=== PATIENT | male | born 1970 | race Caucasian/White ===

== ENCOUNTER 2022-03-24 16:30 | Emergency (ER) | payer OTHER, SELFPAY ==
--- NOTE | ~2022-03-24 | CT_ITS ---
EXAMINATION: CT abdomen pelvis wo con DATE: 03/24/2022 17:22 INDICATION: lower abdominal/pelvic pain radiates to rectum TECHNIQUE: Computed tomography (CT) of the abdomen and pelvis was performed without intravenous contr ast. Automated exposure control and iterative reconstruction technique were employed. The dose-length product was 1511.93 mGy-cm. COMPARISON: None FINDINGS: Lower thorax: Unremarkable Liver: Steatosis. Biliary/Gallbladder: Gallbladder is normal. No bile duct dilation. Pancreas: No mass or duct dilation. Spleen: Normal. Adrenals:No mass. Kidneys: No mass, stone, or hydronephrosis. GI tract: No small or large bowel dilation. Normal appendix. Diverticulosis. Short segment focal dive rticular inflammation in the mid sigmoid. Mesentery/Peritoneum: No ascites, mass, or free air. Retroperitoneum: No mass. Pelvis: Pelvic organs are within normal limits. Soft Tissues: Small umbilical and bilateral fat-containing hernias. Otherwise the soft tissues are un remarkable. Bones: No acute osseous finding. IMPRESSION: Uncomplicated sigmoid diverticulitis. Reviewed, dictated and finalized at location [facility].
[2022-03-24 16:33] VITALS: BP 162/108; PULSE 78; RESP 16; TEMP 36.4; O2SAT 100
[2022-03-24 17:02] LABS: Basophils Absolute Auto 0.1 K/mm3 (0.0-0.1); Basophils Percent Auto 1.3 % (0.2-1.2); Eosinophils Absolute Auto 0.2 K/mm3 (0-0.3); Hematocrit 47.9 % (42.0-52.0); Immature Granulocyte Absolute 0.02 K/mm3 (0.00-0.031); Immature Granulocyte Percent A 0.3 % (0-0.5); Lymphocytes Absolute Auto 2.66 K/mm3 (0.9-3.2); Lymphocytes Percent Auto 35.4 % (18.3-44.2); Mean Corpuscular HGB Conc 35.5 g/dl (32-36); Mean Corpuscular Hemoglobin 31.1 pg (26-34); Mean Corpuscular Volume 87.7 fl (80-100); Mean Platelet Volume 10.2 fl (7.4-10.4); Monocytes Absolute Auto 0.4 K/mm3 (0.1-0.6); Monocytes Percent Auto 5.3 % (2.6-8.5); Neutrophils Absolute Auto 4.2 K/mm3 (1.3-6.7); Neutrophils Percent Auto 55.7 % (45.5-73.1); Platelet Count Result 170 k/mm3 (150-375); Red Blood Count 5.46 M/mm3 (4.6-6.20); Red Cell Distribution Width 12.1 % (11.5-14.5); White Blood Count 7.5 K/mm3 (4.5-10.0)
[2022-03-24 17:04] VITALS: PULSE 68; RESP 13
[2022-03-24 17:11] LABS: Lactic Acid Reflex 1.5 mmol/L (0.7-2.0)
[2022-03-24 17:13] LABS: Alanine Aminotransferase 56 U/L (6-50); Albumin Level 4.8 g/dL (3.5-5.1); Alkaline Phosphatase 81 U/L (38-126); Anion Gap 8 mmol/L (8-16); Aspartate Amino Transferase 43 U/L (17-59); Bilirubin,Total 0.5 mg/dL (0.2-1.3); Blood Urea Nitrogen 12 mg/dL (9-20); Calcium 8.9 mg/dL (8.4-10.2); Carbon Dioxide 24 mmol/L (22-30); Chloride 106 mmol/L (98-107); Estimated CRCL calculation 107 ml/min; Estimated Glomerular Filt Rate > 60; Glucose 104 mg/dL (65-110); Lipase 96 U/L (23-300); Potassium 3.9 mmol/L (3.4-5.0); Sodium 138 mmol/L (137-145)
[2022-03-24 17:15] VITALS: PULSE 67; RESP 15
--- NOTE | 2022-03-24 17:29 | ED.ABDPAIN ---
HPI - Abdominal Pain General Chief Complaint: Abdominal Pain Stated Complaint: ABD Pain x4 Days Time Seen by Provider: 03/24/22 16:47 History of Present Illness HPI narrative: 51-year-old male presents today with complaints of 4 days of lower abdominal/pelvic pain radiating to his rectum. Patient does endorse intermittent nausea but denies diarrhea, constipation, dysuria, urinary frequency. Patient does endorse his stools seem darker than normal almost black. Patient denies any bright red blood. Patient states he does have a history of hemorrhoids. Patient with colonoscopy approximately 1 year ago states that he had 4 polyps that were benign. Related Data Allergies Allergy/AdvReac Type Severity Reaction Status Date / Time No Known Allergies Allergy Verified 03/24/22 17:24 Review of Systems Review of Systems: CONSTITUTIONAL: Denies fever, chills, or sweats. EYES: Denies visual changes, redness, or discharge. ENT: Denies rhinorrhea, congestion, sore throat, or otalgia. CARDIOVASCULAR: Denies chest pain, palpitations, or edema. RESPIRATORY: Denies cough or dyspnea. GASTROINTESTINAL: Abdominal/pelvic pain with nausea. Abdominal distention. Denies vomiting, or diarrhea. GENITOURINARY: Denies dysuria or hematuria. SKIN: Denies rash or itching. MUSCULOSKELETAL: Denies back pain, joint pain, or myalgia. NEUROLOGIC: Denies headache, numbness, dizziness, or weakness. PSYCHIATRIC: Denies anxiety or depression. PMFSH Past Medical History Medical History Back pain Surgical History Surgical History Previous back surgery Social History Social History (Updated 03/24/22 @ 17:33 by Karon Osei APRN) Smoking status: Former smoker Substance use: current Substance use type: marijuana Other substance usage details: Daily Exam Narrative: GENERAL: Well-appearing, well-nourished, and in no acute distress. HEAD: Normocephalic, atraumatic. EYES: PERRLA and EOMI. NECK: Supple. No adenopathy or masses. No carotid bruits or JVD CHEST: Clear to auscultation. No respiratory distress. No wheezes rales or rhonchi HEART: Regular rate and rhythm. No murmur heard. Normal peripheral pulses. ABDOMEN: Soft, nontender, distended, normal active bowel sounds. Rectal exam performed with outsole rounder. No visible hemorrhoids, rectal vault without stool. Hemoccult negative. EXTREMITIES: Normal range of motion. No edema. SKIN: Warm, dry, no rash. NEURO: No focal deficits. Alert and oriented x3. PSYCH: Normal mood and affect. Course Course Emergency Course: Results reviewed with patient. CT scan shows sigmoid diverticulitis uncomplicated. Patient afebrile without signs of sepsis. White count normal. Plan is to discharge home with antibiotics and follow-up with primary on Tuesday. Primary MD paged without return call at this time. Patient is anxious to be discharged. Discharged home aware to return with any new or worsening symptoms Reevaluation(s) Reevaluation #1: Dr. Andrade aware of labs and findings. Aware of discharge home on ABX, clear liquids, with plan follow up with him tuesday or to return to the Er if any new or concerning findings. Date: 03/24/22 Time: 18:56 Vital Signs Vital signs: Vital Signs Temperature 36.4 C 03/24/22 16:33 Pulse Rate 78 03/24/22 16:33 Respiratory Rate 16 03/24/22 16:33 Blood Pressure 162/108 H 03/24/22 16:33 Pulse Oximetry 100 03/24/22 16:33 Oxygen Delivery Room Air 03/24/22 16:33 Temperature 36.4 C 03/24/22 16:33 Pulse Rate 71 03/24/22 17:45 Respiratory Rate 9 L 03/24/22 17:45 Blood Pressure 162/108 H 03/24/22 16:33 Pulse Oximetry 95 03/24/22 17:45 Oxygen Delivery Room Air 03/24/22 16:33 MDM - Abdominal Pain MDM Narrative Medical decision making narrative: 51-year-old male HPI as noted. Patient without any surgical history to the abdomen. C
[2022-03-24 17:30] VITALS: PULSE 63; RESP 11; O2SAT 96
[2022-03-24] MEDS: SODIUM CHLORIDE 0.9% IV 1,000 ML 999 ML IV CONT (17:34)
[2022-03-24] MEDS: HYDROmorphone HCL INJ (*CRX) 1 MG/ML SYR 0.5 MG IV PUSH (17:35)
[2022-03-24 17:45] VITALS: PULSE 71; RESP 9; O2SAT 95
[2022-03-24 18:25] VITALS: BP 168/92; PULSE 58; RESP 16; O2SAT 97
[2022-03-24 18:36] LABS: Appearance Urine Clear (Clear); Bilirubin Urine Negative (Negative); Color Urine Yellow (Yellow); Glucose Urine UA Negative (Negative); Ketones Urine Negative (Negative); Leukocyte Esterase Ur Negative LEU/UL (Negative); Nitrate Urine Negative (Negative); Protein Urine Negative (Negative); Specific Grav Ur >= 1.030 (1.001-1.035); Urobilinogen Urine 0.2 mg/dL (<2.0); pH Urine 5.5 (5.0-9.0)
[2022-03-24 18:37] LABS: Add Urine Microscopic? YES; Blood Urine Trace-Intact (Negative)
[2022-03-24 18:39] LABS: Mucus Urine Rare /lpf; RBC Urine 0-2 /hpf (0-2); WBC Urine 0-3 /hpf
[2022-03-24] MEDS: AMOXICILLIN/CLAVULANATE K 875-125 MG TAB 1 TABLET PO (18:51)
== END 2022-03-24 18:58 | disposition home or self-care (01) ==
PROVIDERS: Emergency Medicine; Emergency Provider Nurse Practitioner Family
DX: K57.32 Diverticulitis of large intestine without perforation or abscess without bleeding (principal)
CPT/HCPCS: 36415; 74176; 80053; 81001; 83605; 83690; 85025; 96361; 96374; 99284; A9270; J1170; J7030

== ENCOUNTER 2022-04-10 11:23 | Outpatient (CLI) | payer OTHER, SELFPAY ==
--- NOTE | ~2022-04-10 | XR_ITS ---
EXAMINATION: XR chest 2V Exam Date/Time: 04/10/2022 12:31 CDT HISTORY: CHEST PAIN, HTN Comparison: CT abdomen pelvis 03/24/2022. RESULT: Lines, tubes, and devices: None. Lungs and pleura: Clear. Cardiomediastinal silhouette: Unremarkable cardiomediastinal silhouette. Other: No acute osseous or upper abdominal finding. IMPRESSION: No acute cardiopulmonary process. Reviewed, dictated and finalized at location [facility].
[2022-04-10 13:07] LABS: Creatinine Urine 168.1 mg/dL
[2022-04-10 13:08] LABS: Cholesterol 229 mg/dL (0-200); HDL Direct 32 mg/dL; Triglycerides 221 mg/dL (<150)
[2022-04-10 13:12] LABS: MALB Creatinine Ratio 8.7 mg/g (0-30); Microalbumin Urine Random 14.7 mg/L (0-16.7)
[2022-04-10 13:19] LABS: LDL Cholesterol Direct 145 mg/dL
[2022-04-10 13:58] LABS: Prostate Specific Antigen 0.8 ng/mL (< OR = 4.0)
== END 2022-04-10 11:24 | disposition home or self-care (01) ==
PROVIDERS: Visit Provider Emergency Medicine
DX: I10 Essential (primary) hypertension (principal); R07.9 Chest pain, unspecified
CPT/HCPCS: 36415; 71046; 80061; 82043; 82306; 83036; 84153; 84439; 84443

== ENCOUNTER 2022-07-27 13:02 | Outpatient (CLI) | payer OTHER, SELFPAY ==
[2022-07-27 13:36] LABS: Creatine Kinase 264 U/L (55-170)
[2022-07-27 13:54] LABS: Rheumatoid Factor < 8.6 IU/ML (<12)
[2022-07-27 14:07] LABS: Erythrocyte Sedimentation Rate 1 mm/hr (0-20)
== END 2022-07-27 13:03 | disposition home or self-care (01) ==
LOC: ANHLAB 13:05
PROVIDERS: Visit Provider Emergency Medicine
DX: M77.8 Other enthesopathies, not elsewhere classified (principal)
CPT/HCPCS: 36415; 82550; 85652; 86038; 86430

== ENCOUNTER 2022-09-17 00:45 | Day surgery (SDC) | payer OTHER, SELFPAY ==
[2022-09-10 10:55] VITALS: BMI 36.3
[2022-09-17 08:30] VITALS: BP 132/81; PULSE 80; RESP 18; TEMP 36.2; O2SAT 99; BMI 36.3
[2022-09-17] MEDS: LACTATED RINGERS 1,000 ML 150 ML IV CONT (08:48)
--- NOTE | 2022-09-17 09:10 | PM.HPGS ---
History of Present Illness History of Present Illness Consent: Risks, benefits, and alternatives have been discussed and questions answered. Patient agrees to proceed with procedure. Chief complaint: GERD, diverticulitis Narrative: Pete Asher III is a 52 year old male here for egd and colonoscopy, here after 2nd episode of diverticulitis earlier this year treated as outpatient (CT scan reviewed), he had colonoscopy in 2019 with several polyps removed. GERD on ppi as needed, never had egd. Review of Systems Constitutional: Constitutional: Denies headache(s) and Denies weakness Eyes: Eyes: Denies blurry vision ENT: Reports Normal hearing present, Denies headache(s) and Denies neck pain Cardiovascular: Cardiovascular: Denies chest pain and Denies dyspnea Respiratory: Respiratory: Denies dyspnea Gastrointestinal: Gastrointestinal: Reports no additional gastrointestinal complaints Genitourinary: Genitourinary: Denies dysuria Musculoskeletal: Musculoskeletal: Denies neck pain Integumentary/Breasts: Skin/Breast: Denies dry skin Neurologic: Reports Normal hearing present, Denies headache(s) and Denies weakness Psychiatric: Psychiatric: Denies anxiety Endocrine: Endocrine: Denies change in body appearance Hematologic/Lymphatic: Hematologic/Lymphatic: Denies easy bleeding Allergic/Immunologic: Allergic/Immunologic: Denies urticaria PMFSH Past Medical History Medical History (Updated 07/15/22 @ 14:33 by Balaji Martel MD) Adenomatous colon polyp Back pain Blood in stool Choking GERD (gastroesophageal reflux disease) HTN (hypertension), benign Surgical History Surgical History Previous back surgery Family History Family History Father Diabetes mellitus Hypertension Heart disease Kidney malignancy Social History Social History Smoking packs per day: 0.5 Smoking cigarettes per day: 10.0 Years smoked: 26 Smoking pack-years: 13.00 Smoking status: Current every day smoker Tobacco type: cigarettes Alcohol intake: never Substance use: current Substance use type: marijuana Other substance usage details: Daily Last use: 3x weekly edibles Living arrangements: with family Spiritual care concerns: No Meds Home Medications and Allergies Home Medications Medication Instructions Recorded Confirmed Type lisinopril 5 mg tablet 5 mg PO DAILY 07/15/22 09/17/22 History oxycodone-acetaminophen 10 mg-325 1 tablet PO Q8H PRN Pain 07/15/22 09/17/22 History mg tablet (Percocet) simvastatin 10 mg tablet 10 mg PO DAILY 07/15/22 09/17/22 History tizanidine 4 mg capsule 4 mg PO TID PRN Muscle Spasm 07/15/22 09/17/22 History fremanezumab-vfrm 225 mg/1.5 mL 225 mg subcut MONTHLY 09/10/22 09/17/22 History subcutaneous syringe (Ajovy Syringe) ibuprofen 600 mg tablet 600 mg PO Q6H PRN Pain 09/10/22 09/17/22 History Allergies Allergy/AdvReac Type Severity Reaction Status Date / Time No Known Allergies Allergy Verified 09/17/22 08:38 Vital Signs Vital Signs - 24 hr 09/17/22 08:30 Temperature 97.2 F L Pulse Rate 80 Respiratory Rate 18 Blood Pressure 132/81 Pulse Oximetry 99 Oxygen Delivery Room Air Exam Const: General: comfortable and no acute distress HENMT: Face/Nose/Sinus: Normal nares present Eyes: General: appearance normal, both eyes and all related structures Neck: Neck: no JVD Resp: Auscultation: clear to auscultation bilaterally Cardio: Rate: regular rate Rhythm: regular rhythm GI: Inspection: non-distended GI Palp: Yes Soft to palpation Skin: General skin exam: normal color Neuro: General: gait normal Speech: normal speech Extrem: General: normal to inspection Psych: Mental Status: mental status grossly normal Assessment and Plan
--- NOTE | 2022-09-17 09:11 | WPDANESEPPF ---
Anes - Initial Pre Proc Eval Procedure: Operation Date: 09/17/22 09:30 Proposed Procedures p Esophagogastroduodenoscopy & Colonoscopy - Balaji Martel MD Date/Time: 09/17/22 09:11 Surgeon: Balaji Martel MD Pre Op Diagnosis: GERD, diverticulitis Patient Data Age: 52 Gender: M Height: 1.85 m Weight: 125.2 kg Last Vital Signs Temp 97.2 F L 09/17/22 08:30 Pulse 80 09/17/22 08:30 Resp 18 09/17/22 08:30 BP 132/81 09/17/22 08:30 Pulse Ox 99 09/17/22 08:30 O2 Del Method Room Air 09/17/22 08:30 Allergies Allergy/AdvReac Type Severity Reaction Status Date / Time No Known Allergies Allergy Verified 09/17/22 08:38 Home Medications Medication Instructions Recorded Confirmed Type lisinopril 5 mg tablet 5 mg PO DAILY 07/15/22 09/17/22 History oxycodone-acetaminophen 10 mg-325 1 tablet PO Q8H PRN Pain 07/15/22 09/17/22 History mg tablet (Percocet) simvastatin 10 mg tablet 10 mg PO DAILY 07/15/22 09/17/22 History tizanidine 4 mg capsule 4 mg PO TID PRN Muscle Spasm 07/15/22 09/17/22 History fremanezumab-vfrm 225 mg/1.5 mL 225 mg subcut MONTHLY 09/10/22 09/17/22 History subcutaneous syringe (Ajovy Syringe) ibuprofen 600 mg tablet 600 mg PO Q6H PRN Pain 09/10/22 09/17/22 History Patient hx anesthesia problems: none Family hx anesthesia problems: none Results Review: All pre-operative results and documents have been reviewed as part of the pre-operative evaluation. [facility] Past Medical History Medical History (Updated 07/15/22 @ 14:33 by Balaji Martel MD) Adenomatous colon polyp Back pain Blood in stool Choking GERD (gastroesophageal reflux disease) HTN (hypertension), benign Surgical History Surgical History Previous back surgery Family History Family History Father Diabetes mellitus Hypertension Heart disease Kidney malignancy Social History Social History Smoking packs per day: 0.5 Smoking cigarettes per day: 10.0 Years smoked: 26 Smoking pack-years: 13.00 Smoking status: Current every day smoker Tobacco type: cigarettes Alcohol intake: never Substance use: current Substance use type: marijuana Other substance usage details: Daily Last use: 3x weekly edibles Living arrangements: with family Spiritual care concerns: No Anes - Eval Final PreProcedure Day of Procedure 09/17/22 09:11 Patient weight: obese Heart: regular rate and rhythm Lungs: clear to auscultation Airway: Mallampati scale class II Neurological: alert and oriented Last oral intake: >/= 8 hours ASA classification: III Emergent: no Anesthetic plan: proceed Anesthesia type and monitoring: general GIVS and standard monitoring Results Review: All pre-operative results and documents have been reviewed as part of the pre-operative evaluation. Informed Consent: The patient's anesthetic plan and its attendant risks and benefits were discussed with the patient/family/POA. Questions were solicited and answers provided to the satisfaction of the patient/family/POA.
[2022-09-17] MEDS: BENZOCAINE (*SP) 60 ML SPRAY CAN (HURRICAINE) 1 SPRAY MUCOUS MEM (09:18)
--- NOTE | 2022-09-17 09:28 | SUR.OPER ---
EGD end 922 COLONOSCOPY START 926
[2022-09-17 09:39] VITALS: BP 114/68; PULSE 73; RESP 19; O2SAT 99
[2022-09-17 09:49] VITALS: BP 108/74; PULSE 66; RESP 18; O2SAT 99
[2022-09-17 09:59] VITALS: BP 122/82; PULSE 74; RESP 18; O2SAT 99
== END 2022-09-17 10:09 | disposition home or self-care (01) ==
PROVIDERS: PCP Emergency Medicine; Visit Provider Internal Medicine Gastroenterology
PROC: 0DJ08ZZ Inspection of Upper Intestinal Tract, Via Natural or Artificial Opening Endoscopic (ICD-10-PCS; CPT 43235; principal; 2022-09-17 09:30)
DX: K21.9 Gastro-esophageal reflux disease without esophagitis (principal); K29.70 Gastritis, unspecified, without bleeding; K57.30 Diverticulosis of large intestine without perforation or abscess without bleeding; K64.8 Other hemorrhoids; K57.32 Diverticulitis of large intestine without perforation or abscess without bleeding; Z86.010 Personal history of colon polyps; I10 Essential (primary) hypertension; F17.210 Nicotine dependence, cigarettes, uncomplicated
CPT/HCPCS: 43239; 45378; 88305; J2704; J7120

== ENCOUNTER 2022-09-28 12:48 | Outpatient (CLI) | payer OTHER, SELFPAY ==
--- NOTE | ~2022-09-28 | MR_ITS ---
MRI of the thoracic spine Clinical History: Back pain Technique: Axial T2-weighted images, and sagittal T1-weighted, T2-weighted, and STIR images were acqu ired. Findings: There is no fracture or subluxation of the thoracic spine. Vertebral bodies maintain normal height and alignment. No suspicious or abnormal bone marrow signal identified. No disc bulge or herniation identified at any thoracic level. There is prominent posterior epidural f at extending from the T5 level through the T10 level, resulting in relative effacement of the thecal sac, but no pedro cord compression. Paravertebral soft tissues otherwise are unremarkable. Impression: Prominent posterior epidural fat from T5 through T10, resulting in relative effacement/compression of the thecal sac at these levels, without pedro cord compression. Reviewed, dictated and finalized at [facility]. ORK DEVELOPMENT COORDINATOR Impression: Prominent posterior epidural fat from T5 through T10, resulting in relative eff acement/compression of the thecal sac at these levels, without pedro cord compr ession.
--- NOTE | ~2022-09-28 | MR_ITS ---
MRI of the cervical spine Clinical History: Back pain Technique: Axial T2-weighted and gradient images, and sagittal T1-weighted, T2-weighted, and STIR katina ges were acquired. Findings: There is no fracture or subluxation of the cervical spine. Vertebral bodies maintain normal height and alignment. No focal bone marrow signal abnormality identified. At C2-C3, there is no disc bulge or herniation. No spinal canal stenosis, cord compression, or neural foraminal narrowing. At C3-C4, there is minimal disc osteophyte complex. There is mild central canal stenosis without skyler k cord compression. There is probable minimal bilateral neural foraminal narrowing. At C4-C5, disc osteophyte complex results in mild canal stenosis and minimal flattening of the ventra l cord. Bilateral neural foramina are preserved. At C5-C6, disc osteophyte complex results in mild canal stenosis and mild ventral cord compression. N eural foramina are well preserved. At C6-C7, disc osteophyte complex is present, resulting in mild canal stenosis and ventral cord compr ession. Bilateral neural foramina are mildly narrowed. No abnormal signal seen in the spinal cord. Paravertebral soft tissues are unremarkable. Impression: Disc osteophyte complexes at C4-C5, C5-C6, and C6-C7, which result in mild canal stenosis and mild ve ntral cord flattening/compression. Probable mild bilateral neural foraminal narrowing at C3-C4 and C6-C7. Reviewed, dictated and finalized at [facility]. ROLL CATCHER Impression: Disc osteophyte complexes at C4-C5, C5-C6, and C6-C7, which result in mild jose david l stenosis and mild ventral cord flattening/compression. Probable mild bilateral neural foraminal narrowing at C3-C4 and C6-C7.
--- NOTE | ~2022-09-28 | MR_ITS ---
MRI of the lumbar spine Clinical History: Back pain Technique: Axial T2-weighted images, and sagittal T1-weighted, T2-weighted, and T2 fat-sat images wer e acquired. Findings: There is no fracture or subluxation of the lumbar spine. Vertebral bodies maintain normal h eight and alignment. No suspicious bone marrow signal abnormality identified. At L1-L2, L2-L3, L3-L4, and L4-L5, intervertebral discs maintain normal signal and position. No disc bulge or herniation seen at disc levels. There is mild facet joint arthropathy at L3-L4 and L4-L5. No pedro spinal canal stenosis at these levels. There is mild left neural foraminal narrowing at L4-L5. Remaining neural foramina at these levels are unremarkable. At L5-S1, there is disc desiccation with mild central disc protrusion. No spinal canal stenosis. Prob able mild bilateral neural foraminal narrowing. There is mild facet arthropathy. Paravertebral soft tissues are unremarkable. Impression: Mild degenerative spondylitic changes at L4-L5 and L5-S1, as detailed above. Probable mild bilateral neural foraminal narrowing at L5-S1 and mild left neural foraminal narrowing at L4-L5. Reviewed, dictated and finalized at [facility]. IAL POLICE Impression: Mild degenerative spondylitic changes at L4-L5 and L5-S1, as detailed above. Pr obable mild bilateral neural foraminal narrowing at L5-S1 and mild left neural foraminal narrowing at L4-L5.
== END 2022-09-28 12:49 | disposition home or self-care (01) ==
PROVIDERS: PCP Emergency Medicine; Visit Provider Emergency Medicine
DX: M54.2 Cervicalgia (principal); M47.896 Other spondylosis, lumbar region; M47.897 Other spondylosis, lumbosacral region
CPT/HCPCS: 72141; 72146; 72148

== ENCOUNTER 2022-10-05 17:24 | Emergency (ER) | payer OTHER, SELFPAY ==
[2022-10-05 17:42] VITALS: BP 131/77; PULSE 71; RESP 16; TEMP 36.4; O2SAT 97
--- NOTE | 2022-10-05 18:00 | ED.URI ---
HPI - URI/Sore Throat General Chief Complaint: Upper Respiratory Infection Stated Complaint: Cough,Shortness Of Breath,Congestion,Fatigue Time Seen by Provider: 10/05/22 18:00 Source: patient, RN notes reviewed and old records reviewed Mode of arrival: ambulatory Limitations: no limitations History of Present Illness HPI Narrative: 52-year-old male presents to the [facility] with fatigue, cough, chest congestion since last night. Has not taken anything for his symptoms. Related Data Home Medications Medication Instructions Recorded Confirmed lisinopril 5 mg tablet 5 mg PO DAILY 07/15/22 10/05/22 oxycodone-acetaminophen 10 mg-325 1 tablet PO Q8H PRN Pain 07/15/22 10/05/22 mg tablet (Percocet) simvastatin 10 mg tablet 10 mg PO DAILY 07/15/22 10/05/22 tizanidine 4 mg capsule 4 mg PO TID PRN Muscle Spasm 07/15/22 10/05/22 fremanezumab-vfrm 225 mg/1.5 mL 225 mg subcut MONTHLY 09/10/22 10/05/22 subcutaneous syringe (Ajovy Syringe) ibuprofen 600 mg tablet 600 mg PO Q6H PRN Pain 09/10/22 10/05/22 Allergies Allergy/AdvReac Type Severity Reaction Status Date / Time No Known Allergies Allergy Verified 10/05/22 17:43 Review of Systems Review of Systems: All systems reviewed & are unremarkable except as noted in HPI and below Constitutional: Constitutional: Reports no additional constitutional complaints Eyes: Eyes: Reports no additional eye complaints ENT: Reports as per HPI and Reports nasal congestion Cardiovascular: Cardiovascular: Reports no additional cardiovascular complaints, Denies chest pain and Denies dyspnea Respiratory: Respiratory: Reports as per HPI, Reports chest congestion, Reports cough and Denies dyspnea Gastrointestinal: Gastrointestinal: Reports no additional gastrointestinal complaints, Denies abdominal pain, Denies nausea and Denies vomiting Musculoskeletal: Musculoskeletal: Reports no additional musculoskeletal complaints Integumentary/Breasts: Skin/Breast: Reports system reviewed and no additional complaints, except as docu Neurologic: Reports system reviewed and no additional complaints, except as documented Psychiatric: Psychiatric: Reports no additional psychiatric complaints Allergic/Immunologic: Allergic/Immunologic: Reports no additional allergic/immunologic complaints PMFSH Past Medical History Medical History Adenomatous colon polyp Back pain Blood in stool Choking GERD (gastroesophageal reflux disease) HTN (hypertension), benign Surgical History Surgical History Previous back surgery Family History Family History Father Diabetes mellitus Hypertension Heart disease Kidney malignancy Social History Social History Smoking packs per day: 0.5 Smoking cigarettes per day: 10.0 Years smoked: 26 Smoking pack-years: 13.00 Smoking status: Current every day smoker Tobacco type: cigarettes Alcohol intake: never Substance use: current Substance use type: marijuana Other substance usage details: Daily Last use: 3x weekly edibles Spiritual care concerns: No Comments At the time of my signature, I reviewed and agree with the nursing past medical, surgical, social, and family history. There is no relevant family history pertinent to the patient complaint. Exam Const: General: cooperative, healthy appearing, comfortable, no acute distress, well developed, alert and well nourished Nutritional Appearance: well nourished and obese Orientation/consciousness: patient oriented x3 Limitations: no limitations HENMT: Head: normal to inspection Ears: hearing grossly normal bilaterally and external ears normal Face/Nose/Sinus: Normal external nose present, Normal nares present, Normal nasal mucous membranes and turbinates present and norm
== END 2022-10-05 18:30 | disposition home or self-care (01) ==
PROVIDERS: Emergency Provider Nurse Practitioner; PCP Emergency Medicine
DX: J40 Bronchitis, not specified as acute or chronic (principal); F17.210 Nicotine dependence, cigarettes, uncomplicated; K21.9 Gastro-esophageal reflux disease without esophagitis; I10 Essential (primary) hypertension
CPT/HCPCS: 87804; 99213; G0463

== ENCOUNTER 2022-10-15 17:20 | Emergency (ER) | payer OTHER, SELFPAY ==
[2022-10-15 17:31] VITALS: BP 116/80; PULSE 94; RESP 18; TEMP 36.7; O2SAT 100
--- NOTE | 2022-10-15 17:48 | ED.URI ---
HPI - URI/Sore Throat General Chief Complaint: Upper Respiratory Infection Stated Complaint: sob Time Seen by Provider: 10/15/22 17:53 Source: patient and RN notes reviewed Mode of arrival: ambulatory Limitations: no limitations History of Present Illness HPI Narrative: 52 y/o male presented for c/o sinus pressure and cough for over 10 days. Patient was seen at the clinic on 10/05/22 and prescribed Medrol jailyn, albuterol and z-pack. Reports improvement but states now cough and congestion have worsened. Reports rib pain and trouble sleeping due to coughing. Taking otc meds to help with symptoms. Denies sob, wheezing, n/v/d/f/c. Smokes 1/2ppd. MD elicited complaint: cough Related Data Home Medications Medication Instructions Recorded Confirmed lisinopril 5 mg tablet 5 mg PO DAILY 07/15/22 10/15/22 oxycodone-acetaminophen 10 mg-325 1 tablet PO Q8H PRN Pain 07/15/22 10/15/22 mg tablet (Percocet) simvastatin 10 mg tablet 10 mg PO DAILY 07/15/22 10/15/22 tizanidine 4 mg capsule 4 mg PO TID PRN Muscle Spasm 07/15/22 10/15/22 fremanezumab-vfrm 225 mg/1.5 mL 225 mg subcut MONTHLY 09/10/22 10/15/22 subcutaneous syringe (Ajovy Syringe) Allergies Allergy/AdvReac Type Severity Reaction Status Date / Time No Known Allergies Allergy Verified 10/15/22 17:41 Review of Systems Review of Systems: CONSTITUTIONAL: Denies malaise, chills, sweats, fever EYES: Denies visual changes, redness, or discharge ENT: Reports rhinorrhea, congestion, sinus pain, deniesotalgia, sore throat CARDIOVASCULAR: Denies chest pain, palpitations, edema RESPIRATORY: Reports cough, post nasal drainage. Denies dyspnea GASTROINTESTINAL: Denies abdominal pain, nausea, vomiting, diarrhea SKIN: Denies rash or itching MUSCULOSKELETAL: denies myalgia NEUROLOGIC: Denies headache PMFSH Past Medical History Medical History Adenomatous colon polyp Back pain Blood in stool Choking GERD (gastroesophageal reflux disease) HTN (hypertension), benign Surgical History Surgical History Previous back surgery Family History Family History Father Diabetes mellitus Hypertension Heart disease Kidney malignancy Social History Social History Smoking packs per day: 0.5 Smoking cigarettes per day: 10.0 Years smoked: 26 Smoking pack-years: 13.00 Smoking status: Current every day smoker Tobacco type: cigarettes Alcohol intake: never Substance use: current Substance use type: marijuana Other substance usage details: Daily Last use: 3x weekly edibles Spiritual care concerns: No Exam Narrative: GENERAL: Ill-appearing, nontoxic EYES: PERRLA, conjunctivae clear ENT: Mucous membranes moist. TM pearly vallecillo with dull light reflex bilaterally; no tragal tenderness. Oropharynx erythematous without lesions or exudate, no drooling, no hoarseness, no trismus, uvula midline. CHEST: Clear to auscultation, breath sounds equal. No wheezing, rhonchi, rales, or stridor. No respiratory distress, speaks in full sentences. HEART: Regular rate and rhythm. No murmur heard. SKIN: Warm, dry, no rash. NEURO: Alert and oriented x3. PSYCH: Normal mood and affect Course Course Emergency Course: Patient is aware of diagnosis, understands and agrees to treatment plan. Anticipatory guidance given. Patient agrees to follow-up as directed and is aware of reasons to seek care at the emergency department. Portions of this record may have been created with voice recognition software Level of Care: Express Care Visit Vital Signs Vital signs: Vital Signs Temperature 98.1 F 10/15/22 17:31 Pulse Rate 94 10/15/22 17:31 Respiratory Rate 18 10/15/22 17:31 Blood Pressure 116/80 10/15/22 17:31 Pulse Oximetry 100
== END 2022-10-15 18:10 | disposition home or self-care (01) ==
PROVIDERS: Emergency Provider Nurse Practitioner Family; PCP Emergency Medicine
DX: J06.9 Acute upper respiratory infection, unspecified (principal); F17.210 Nicotine dependence, cigarettes, uncomplicated; K21.9 Gastro-esophageal reflux disease without esophagitis; I10 Essential (primary) hypertension
CPT/HCPCS: 99213; G0463

== ENCOUNTER 2022-12-27 17:18 | Emergency (ER) | payer OTHER, SELFPAY ==
--- NOTE | ~2022-12-27 | XR_ITS ---
EXAMINATION: XR chest 2V Exam Date/Time: 12/27/2022 19:05 CDT HISTORY: cough with pain X's 2 days,smoker Comparison: 04/10/2022. RESULT: Lines, tubes, and devices: None. Lungs and pleura: Clear. Cardiomediastinal silhouette: Stable. Other: No acute osseous or upper abdominal finding. IMPRESSION: No acute cardiopulmonary process. Reviewed, dictated and finalized at location [facility].
[2022-12-27 18:23] VITALS: BP 120/76; PULSE 79; RESP 20; TEMP 36.4; O2SAT 99
--- NOTE | 2022-12-27 18:57 | ED.URI ---
HPI - URI/Sore Throat General Chief Complaint: Upper Respiratory Infection Stated Complaint: Congestion,Cough,Shortness of Breath Time Seen by Provider: 12/27/22 17:19 Source: patient Mode of arrival: ambulatory Limitations: no limitations History of Present Illness HPI Narrative: 52-year-old male presents to [facility] with complaints of chest congestion, productive cough, wheezing, sore throat, bilateral ear pressure for the past 2 days. Patient was evaluated here 2 months ago, diagnosed with a sinusitis and was prescribed Augmentin and benzonatate at that time. Patient has been taking [id number] Mucinex and NyQuil with minimal relief. Patient is a smoker. Patient denies shortness of breath, nausea vomiting or diarrhea. MD elicited complaint: cough, rhinorrhea and nasal congestion Onset (ago): day(s) (3) Able to tolerate fluids by mouth: Yes Treatments prior to arrival: acetaminophen, ibuprofen and cold medicine Related Data Home Medications Medication Instructions Recorded Confirmed lisinopril 5 mg tablet 5 mg PO DAILY 07/15/22 12/27/22 oxycodone-acetaminophen 10 mg-325 1 tablet PO Q8H PRN Pain 07/15/22 12/27/22 mg tablet (Percocet) simvastatin 10 mg tablet 10 mg PO DAILY 07/15/22 12/27/22 tizanidine 4 mg capsule 4 mg PO TID PRN Muscle Spasm 07/15/22 12/27/22 fremanezumab-vfrm 225 mg/1.5 mL 225 mg subcut MONTHLY 09/10/22 12/27/22 subcutaneous syringe (Ajovy Syringe) Allergies Allergy/AdvReac Type Severity Reaction Status Date / Time No Known Allergies Allergy Verified 10/15/22 17:41 Review of Systems Constitutional: Constitutional: Reports chills, Reports fatigue, Denies fever(s) and Denies weakness ENT: Denies dizziness, Denies epistaxis, Reports nasal congestion and Denies sore throat Cardiovascular: Cardiovascular: Denies chest pain Respiratory: Respiratory: Reports cough, Denies dyspnea and Denies wheezing Gastrointestinal: Gastrointestinal: Denies diarrhea, Denies nausea and Denies vomiting Integumentary/Breasts: Skin/Breast: Denies rash Neurologic: Denies dizziness, Denies syncope and Denies headache(s) [facility] Past Medical History Medical History Adenomatous colon polyp Back pain Blood in stool Choking GERD (gastroesophageal reflux disease) HTN (hypertension), benign Surgical History Surgical History Previous back surgery Family History Family History Father Diabetes mellitus Hypertension Heart disease Kidney malignancy Social History Social History Smoking packs per day: 0.5 Smoking cigarettes per day: 10.0 Years smoked: 26 Smoking pack-years: 13.00 Smoking status: Current every day smoker Tobacco type: cigarettes Alcohol intake: never Substance use: current Substance use type: marijuana Other substance usage details: Daily Last use: 3x weekly edibles Living arrangements: with family Spiritual care concerns: No Comments At time of signature, I agree with nursing past medical, surgical, social and family history. There is no relevant family history pertinent to the presenting complaint. Exam Const: General: healthy appearing and no acute distress Nutritional Appearance: well nourished Orientation/consciousness: patient oriented x3 Limitations: no limitations HENMT: Head: normal to inspection Ears: external ears normal, TM's normal bilaterally and EAC's normal Face/Nose/Sinus: Normal external nose present Face and sinus: normal facial exam Mouth: Yes moist mucous membranes Teeth and gingiva: dentition normal Throat: posterior oropharynx normal and uvula midline Eyes: Conjunctivae: conjunctivae normal Neck: Neck: normal visual inspection Resp: Effort & Inspection: normal respiratory effort Auscultation:
== END 2022-12-27 19:29 | disposition home or self-care (01) ==
PROVIDERS: Emergency Provider Nurse Practitioner Family; PCP Emergency Medicine
DX: J06.9 Acute upper respiratory infection, unspecified (principal); I10 Essential (primary) hypertension; F17.210 Nicotine dependence, cigarettes, uncomplicated; Z79.891 Long term (current) use of opiate analgesic; Z20.822 Contact with and (suspected) exposure to COVID-19
CPT/HCPCS: 71046; 87426; 99213; C9803; G0463

== ENCOUNTER 2023-03-26 07:18 | Outpatient (CLI) | payer BC, SELFPAY ==
[2023-03-26 08:33] LABS: Hematocrit 47.6 % (42.0-52.0); Hemoglobin 15.9 g/dL (14.0-18.0); Mean Corpuscular HGB Conc 33.4 g/dl (32-36); Mean Corpuscular Hemoglobin 30.7 pg (26-34); Mean Corpuscular Volume 91.9 fl (80-100); Mean Platelet Volume 10.5 fl (7.4-10.4); Platelet Count Result 168 k/mm3 (150-375); Red Blood Count 5.18 M/mm3 (4.6-6.20); Red Cell Distribution Width 12.5 % (11.5-14.5); White Blood Count 7.4 K/mm3 (4.5-10.0)
[2023-03-26 08:41] LABS: Alanine Aminotransferase 66 U/L (6-50); Albumin Level 4.4 g/dL (3.5-5.1); Alkaline Phosphatase 71 U/L (38-126); Anion Gap 5 mmol/L (8-16); Aspartate Amino Transferase 50 U/L (17-59); Bilirubin,Total 0.6 mg/dL (0.2-1.3); Blood Urea Nitrogen 10 mg/dL (9-20); Carbon Dioxide 29 mmol/L (22-30); Chloride 103 mmol/L (98-107); Cholesterol 170 mg/dL (0-200); Estimated Glomerular Filt Rate > 60; Glucose 149 mg/dL (65-110); HDL Direct 29 mg/dL; Potassium 4.2 mmol/L (3.4-5.0); Sodium 137 mmol/L (137-145); Triglycerides 280 mg/dL (<150)
[2023-03-26 08:42] LABS: Hemoglobin A1C 7.5 % (<5.7)
[2023-03-26 08:55] LABS: LDL Cholesterol Direct 100 mg/dL
[2023-03-26 09:10] LABS: Prostate Specific Antigen 0.7 ng/mL (< OR = 4.0)
[2023-03-26 10:13] LABS: Creatinine Urine 182.3 mg/dL
[2023-03-26 10:17] LABS: MALB Creatinine Ratio 3.6 mg/g (0-30); Microalbumin Urine Random 6.5 mg/L (0-16.7)
[2023-03-26 10:29] LABS: Free T4 Free Thyroxine 0.73 ng/mL (0.78-2.19); Vitamin D 25 Hydroxy 16.7 ng/mL
== END 2023-03-26 07:19 | disposition home or self-care (01) ==
PROVIDERS: PCP Emergency Medicine; Visit Provider Emergency Medicine
DX: Z00.00 Encounter for general adult medical examination without abnormal findings (principal); E78.5 Hyperlipidemia, unspecified; I10 Essential (primary) hypertension; M12.9 Arthropathy, unspecified
CPT/HCPCS: 36415; 80053; 80061; 82043; 82306; 83036; 84153; 84439; 84443; 85027

== ENCOUNTER 2023-12-28 13:06 | Emergency (ER) | payer BC, SELFPAY ==
--- NOTE | ~2023-12-28 | CT_ITS ---
EXAMINATION: CT abdomen pelvis w con DATE: 12/28/2023 14:44 INDICATION: Right-sided abdominal pain. Possible incarcerated hernia. TECHNIQUE: Computed tomography (CT) of the abdomen and pelvis was performed with 100 CC Omnipaque 350 intravenous contrast. Automated exposure control and iterative reconstruction technique were employe d. Exam dose: 1584.37 mGy-cm total exam DLP. COMPARISON: 03/24/2022 CT abdomen pelvis FINDINGS: Minimal discoid atelectasis and/or scarring of the lingula and left lower lobe. Lower porti on of middle and right lower lobes are partially excluded. Normal heart size. No pericardial or pleural effusion. Diffuse hepatic steatosis. Small cyst or hemangioma along the anterolateral aspect of the lateral seg ment left hepatic lobe and along the anteromedial aspect of the lower portion of the right liver. The gallbladder appears unremarkable except for approximately 3 mm calculus in the cystic duct area. No gallbladder wall thickening or pericholecystic fluid or fat stranding. No pancreatic mass lesion, calcification or ductal dilatation. Normal splenic size. Normal morphology of the adrenal glands. Pinpoint nonobstructing right renal calculus. No other urinary tract calculus or hydroureteronephrosi s. No renal space occupying mass lesion is evident. The urinary bladder and prostate gland are unrema rkable. Bilateral fat-containing inguinal hernias. Small fat-containing umbilical hernia. Normal caliber of the abdominal aorta. No intraperitoneal or retroperitoneal or pelvic mass lesion or adenopathy or ascites. Diverticulosis of the left and to a lesser extent right colon; no CT evidence of diverticulitis. Normal appendix. No suspicious osteolytic or osteoblastic lesions. IMPRESSION: Hepatic steatosis Small lateral segment left hepatic and right hepatic probable cyst or hemangioma 3 mm calculus at the cystic duct area Pinpoint nonobstructing right renal calculus Diverticulosis of left and to a lesser extent right colon; no evidence of diverticulitis Normal appendix Reviewed, dictated and finalized at [facility]. Reviewed, dictated and finalized at location B. IMPRESSION: Hepatic steatosis Small lateral segment left hepatic and right hepatic probable cyst or hemangiom a 3 mm calculus at the cystic duct area Pinpoint nonobstructing right renal calculus Diverticulosis of left and to a lesser extent right colon; no evidence of diver ticulitis Normal appendix
[2023-12-28 13:15] VITALS: BP 144/83; PULSE 71; RESP 16; TEMP 36.6; O2SAT 99
--- NOTE | 2023-12-28 14:12 | ED.ABDPAIN ---
HPI - Abdominal Pain General Chief Complaint: Abdominal Pain <Sukhwinder Witt APRN - Last Filed: 12/28/23 16:33> Stated Complaint: abd pain <Sukhwinder Witt APRN - Last Filed: 12/28/23 16:33> Time Seen by Provider: 12/28/23 14:13 <Sukhwinder Witt APRN - Last Filed: 12/28/23 16:33> Focused HPI: Pete is a 53-year-old male patient presenting to the ER today with complaints of diffuse abdominal pain, reports the pain has been constant but got worse yesterday. States that the pain is sharp and it feels like there is pulling in the rectum. Denies any fever or chills. Does have some nausea without vomiting. History of umbilical hernia-does not see a surgeon until next month. Rates his pain 10/10 currently. Last bowel movement was yesterday and was partially soft/diarrhea and was black. General: Well-developed, overweight, in distress due to pain Head: Normocephalic, atraumatic. Cardio: Regular rate and rhythm, s1 and s2 normal, no murmur appreciated. Resp: Clear to auscultation bilaterally, no rhonchi, rales, wheezing or rubs. Abdomen: Soft, distended per patient, tenderness to palpation over the mid abdomen/periumbilical area, bowel sounds present in all 4 quadrants, no organomegly, no CVAT tenderness. Patient screened in triage and initial orders placed. Additional care and disposition to be based upon diagnostic testing and treatment. <Sukhwinder Witt APRN - Last Filed: 12/28/23 16:33> Source: patient <Sukhwinder Witt APRN - Last Filed: 12/28/23 16:33> Mode of arrival: ambulatory <Sukhwinder Witt APRN - Last Filed: 12/28/23 16:33> Limitations: no limitations <Sukhwinder Witt APRN - Last Filed: 12/28/23 16:33> History of Present Illness HPI narrative: 53-year-old male presenting ED for evaluation of periumbilical abdominal pain. Patient does have a known hernia and is scheduled to have follow-up with surgery at [facility]. Patient states he began having increased abdominal pain yesterday and did have follow-up with his primary care physician. Patient does not have follow-up with surgery until January 24. <Bravo Bacon MD - Last Filed: 12/28/23 21:47> Related Data Home Medications: Home Medications Medication Instructions Recorded Confirmed lisinopril 5 mg tablet 5 mg PO DAILY 07/15/22 12/27/22 oxycodone-acetaminophen 10 mg-325 1 tablet PO Q8H PRN Pain 07/15/22 12/27/22 mg tablet (Percocet) simvastatin 10 mg tablet 10 mg PO DAILY 07/15/22 12/27/22 tizanidine 4 mg capsule 4 mg PO TID PRN Muscle Spasm 07/15/22 12/27/22 fremanezumab-vfrm 225 mg/1.5 mL 225 mg subcut MONTHLY 09/10/22 12/27/22 subcutaneous syringe (Ajovy Syringe) <Sukhwinder Witt APRN - Last Filed: 12/28/23 16:33> Allergies/Adverse Reactions: Allergies Allergy/AdvReac Type Severity Reaction Status Date / Time No Known Allergies Allergy Verified 12/28/23 14:59 <Sukhwinder Witt APRN - Last Filed: 12/28/23 16:33> Review of Systems Review of Systems: All systems reviewed & are unremarkable except as noted in HPI and below <Bravo Bacon MD - Last Filed: 12/28/23 21:47> [facility] Past Medical History Medical History: Medical History Adenomatous colon polyp Back pain Blood in stool Choking GERD (gastroesophageal reflux disease) HTN (hypertension), benign <Sukhwinder Witt APRN - Last Filed: 12/28/23 16:33> Surgical History Surgical History: Surgical History Previous back surgery <Sukhwinder Witt APRN - Last Filed: 12/28/23 16:33> Family History Family History: Family History Father Diabetes mellitus Hypertension Heart disease Kidney malignancy <Sukhwinder Witt, [employer] - Last Filed: 12/28/23 16:33> Social History Social
[2023-12-28 14:35] LABS: Basophils Percent Auto 0.7 % (0.2-1.2); Eosinophils Absolute Auto 0.1 K/mm3 (0-0.3); Eosinophils Percent Auto 1.5 % (0-4.4); Hematocrit 48.7 % (42.0-52.0); Immature Granulocyte Absolute 0.02 K/mm3 (0.00-0.031); Immature Granulocyte Percent A 0.4 % (0-0.5); Lymphocytes Percent Auto 37.5 % (18.3-44.2); Mean Corpuscular HGB Conc 32.9 g/dl (32-36); Mean Corpuscular Hemoglobin 29.3 pg (26-34); Mean Corpuscular Volume 89.2 fl (80-100); Mean Platelet Volume 10.5 fl (7.4-10.4); Monocytes Absolute Auto 0.3 K/mm3 (0.1-0.6); Monocytes Percent Auto 5.6 % (2.6-8.5); Neutrophils Absolute Auto 2.9 K/mm3 (1.3-6.7); Neutrophils Percent Auto 54.3 % (45.5-73.1); Platelet Count Result 162 k/mm3 (150-375); Red Blood Count 5.46 M/mm3 (4.6-6.20); Red Cell Distribution Width 12.4 % (11.5-14.5); White Blood Count 5.3 K/mm3 (4.5-10.0)
[2023-12-28 14:44] LABS: Alanine Aminotransferase 72 U/L (6-50); Albumin Level 4.6 g/dL (3.5-5.1); Alkaline Phosphatase 63 U/L (38-126); Anion Gap 6 mmol/L (8-16); Aspartate Amino Transferase 62 U/L (17-59); Blood Urea Nitrogen 10 mg/dL (9-20); Calcium 9.9 mg/dL (8.4-10.2); Carbon Dioxide 29 mmol/L (22-30); Chloride 101 mmol/L (98-107); Estimated CRCL calculation 117 ml/min; Estimated Glomerular Filt Rate > 60; Glucose 212 mg/dL (65-110); Lipase 72 U/L (23-300); Potassium 4.1 mmol/L (3.4-5.0); Sodium 136 mmol/L (137-145)
[2023-12-28] MEDS: ONDANSETRON INJ 4 MG/2 ML VIAL IV PUSH (15:01)
[2023-12-28] MEDS: MORPHINE SULFATE (*CRX) 4 MG/ML INJ IV PUSH (15:01)
[2023-12-28] MEDS: SODIUM CHLORIDE 0.9% IV 1,000 ML 999 ML IV CONT (15:02)
--- NOTE | 2023-12-28 15:07 | PC.NURSE ---
pt made aware we need a urine sample. pt reports he is unable to go at this time and will attempt when fluids are finished. declining straight cath at this time.
[2023-12-28 15:08] VITALS: BP 148/91; PULSE 68; RESP 16; O2SAT 98
[2023-12-28 15:39] LABS: Appearance Urine Clear (Clear); Bilirubin Urine Negative (Negative); Blood Urine Negative (Negative); Color Urine Yellow (Yellow); Glucose Urine UA Trace mg/dL (Negative); Ketones Urine Negative (Negative); Leukocyte Esterase Ur Negative LEU/UL (Negative); Nitrate Urine Negative (Negative); Protein Urine Negative (Negative); Urobilinogen Urine 0.2 mg/dL (<2.0); pH Urine 5.5 (5.0-9.0)
[2023-12-28 16:01] LABS: Add Urine Microscopic? NO; Specific Grav Ur 1.045 (1.001-1.035)
[2023-12-28 17:10] VITALS: BP 142/84; PULSE 84; RESP 16; O2SAT 98
[2023-12-29 10:30] LABS: Estimated CRCL calculation 106 ml/min; Estimated Glomerular Filt Rate > 60
== END 2023-12-28 17:12 | disposition home or self-care (01) ==
PROVIDERS: Nurse Practitioner Family; Emergency Provider Emergency Medicine; PCP Emergency Medicine
DX: R10.33 Periumbilical pain (principal); K21.9 Gastro-esophageal reflux disease without esophagitis; I10 Essential (primary) hypertension; F17.210 Nicotine dependence, cigarettes, uncomplicated; Z86.010 Personal history of colon polyps; K76.0 Fatty (change of) liver, not elsewhere classified; K57.90 Diverticulosis of intestine, part unspecified, without perforation or abscess without bleeding; N20.0 Calculus of kidney; K80.50 Calculus of bile duct without cholangitis or cholecystitis without obstruction; R93.422 Abnormal radiologic findings on diagnostic imaging of left kidney; R93.421 Abnormal radiologic findings on diagnostic imaging of right kidney
CPT/HCPCS: 36415; 74177; 80053; 82565; 83690; 85025; 96361; 96374; 96375; 99284; J2270; J2405; J7030; Q9967

== ENCOUNTER 2024-02-27 10:11 | Outpatient (CLI) | payer SELFPAY ==
[2024-02-27 11:02] LABS: Cholesterol 147 mg/dL (0-200); HDL Direct 30 mg/dL; Triglycerides 242 mg/dL (<150)
[2024-02-27 11:05] LABS: Hemoglobin A1C 8.2 % (<5.7)
[2024-02-27 11:12] LABS: LDL Cholesterol Direct 87 mg/dL
[2024-02-27 11:58] LABS: Hepatitis B Surface Antigen Negative (Negative)
[2024-02-27 12:04] LABS: HAV RESULT Negative (Negative); Hepatitis B Core IgM Result Negative (Negative)
[2024-02-27 12:16] LABS: Hepatitis C Virus Antibody Negative (Negative)
[2024-02-29 06:59] LABS: Thyroid Peroxidase Antibodies 1 IU/mL (<9)
== END 2024-02-27 10:12 | disposition home or self-care (01) ==
LOC: ANHLAB 10:15
PROVIDERS: PCP Emergency Medicine; Visit Provider Emergency Medicine
DX: E78.5 Hyperlipidemia, unspecified (principal); E11.9 Type 2 diabetes mellitus without complications; I10 Essential (primary) hypertension; E03.9 Hypothyroidism, unspecified; M54.50 Low back pain, unspecified
CPT/HCPCS: 36415; 80061; 80074; 83036; 84439; 84443; 84480; 86376

== ENCOUNTER 2024-05-11 16:28 | Emergency (ER) | payer SELFPAY ==
[2024-05-11] VITALS (10 sets, daily range): BP systolic 143–152; BP diastolic 84–94; PULSE 63–77; RESP 12–18; TEMP 36.2; O2SAT 97–99
--- NOTE | ~2024-05-11 | XR_ITS ---
EXAMINATION: XR chest 2V DATE: 05/11/2024 16:50 INDICATION: Chest pain. TECHNIQUE: Frontal and lateral views of the chest were obtained. COMPARISON: Chest 2 views 12/27/2022, CT abdomen and pelvis 12/28/2023 FINDINGS: There is mild atelectasis in left lower lung zone. No pleural effusion or pneumothorax. The heart size is normal. IMPRESSION: 1. Mild atelectasis in left lower lung zone. Reviewed, dictated and finalized at location A.
--- NOTE | 2024-05-11 16:33 | ECG_ITS ---
Test Date: 2024-05-11 16:39:28 Measurements Intervals [place] Rate: 80 P: 22 MD: 166 QRS: -34 QRSD: 102 T: 37 QT: 369 QTc: 426 Interpretive Statements SINUS RHYTHM WITH SINUS ARRHYTHMIA MARKED LEFT AXIS DEVIATION [QRS AXIS < -30] LEFT ANTERIOR SUPERIOR HEMIBLOCK ABNORMAL ECG No previous ECG available for comparison Electronically Signed On 05-11-2024 18:22:33 CDT by Sid Kaur M.D.
--- NOTE | 2024-05-11 16:38 | ED.CHESTPAIN ---
HPI - Chest Pain General Chief Complaint: Chest Pain <Anish Stein APRN - Last Filed: 05/11/24 16:40> Stated Complaint: Chest Pain x 1 Week <Anish Stein APRN - Last Filed: 05/11/24 16:40> Time Seen by Provider: 05/11/24 16:38 <Anish Stein APRN - Last Filed: 05/11/24 16:40> Patient presents with mid sternal chest pain and sob x 10 days. patient states the symptoms have been getting worse. patient had a stress test 2 years ago. patient denies heart issues but states has a strong family hx. PE: A&Ox3, BS CTA, HR RRR with no murmur, moving all extremities, skin warm, dry and intact <Anish Stein APRN - Last Filed: 05/11/24 16:40> History of Present Illness HPI narrative: patient 53-year-old gentleman who presents emergency department with chief complaint of chest pain and shortness of breath. Patient reports that the symptoms have been ongoing for the last 10 days reports that in the pain is worse with movement reports it also is worse palpation of his chest and upper abdomen patient reports he has been taking a lot of antacids without relief. Patient reports no prior history of cardiac disease <Harvey Estrada MD - Last Filed: 05/12/24 00:54> Related Data Home Medications: Home Medications Medication Instructions Recorded Confirmed lisinopril 5 mg tablet 5 mg PO DAILY 07/15/22 12/27/22 oxycodone-acetaminophen 10 mg-325 1 tablet PO Q8H PRN Pain 07/15/22 12/27/22 mg tablet (Percocet) simvastatin 10 mg tablet 10 mg PO DAILY 07/15/22 12/27/22 tizanidine 4 mg capsule 4 mg PO TID PRN Muscle Spasm 07/15/22 12/27/22 fremanezumab-vfrm 225 mg/1.5 mL 225 mg subcut MONTHLY 09/10/22 12/27/22 subcutaneous syringe (Ajovy Syringe) <Anish Stein APRN - Last Filed: 05/11/24 16:40> Allergies/Adverse Reactions: Allergies Allergy/AdvReac Type Severity Reaction Status Date / Time No Known Allergies Allergy Verified 05/11/24 22:38 <Anish Stein APRN - Last Filed: 05/11/24 16:40> Review of Systems Review of Systems: A 10 system review of systems was completed on the patient and is negative except for what is stated in the HPI. Nursing and ancillary documentation was reviewed. <Harvey Estrada MD - Last Filed: 05/12/24 00:54> [facility] Past Medical History Medical History: Medical History Adenomatous colon polyp Back pain Blood in stool Choking GERD (gastroesophageal reflux disease) HTN (hypertension), benign <Anish Stein APRN - Last Filed: 05/11/24 16:40> Surgical History Surgical History: Surgical History Previous back surgery <Anish Stein APRN - Last Filed: 05/11/24 16:40> Family History Family History: Family History Father Diabetes mellitus Hypertension Heart disease Kidney malignancy <Anish Stein APRN - Last Filed: 05/11/24 16:40> Social History Social History: Social History Smoking packs per day: 0.5 Smoking cigarettes per day: 10.0 Years smoked: 26 Smoking pack-years: 13.00 Smoking status: Current every day smoker Tobacco type: cigarettes Alcohol intake: never Substance use: current Substance use type: marijuana Other substance usage details: Daily Last use: 3x weekly edibles Living arrangements: with family Spiritual care concerns: No <Anish Stein APRN - Last Filed: 05/11/24 16:40> Exam Narrative: GENERAL: Well-appearing, well-nourished, and in no acute distress. HEAD: Normocephalic, atraumatic. EYES: PERRLA and EOMI. ENT: Nares clear, no rhinorrhea or epistaxis. Mucous membranes moist. NECK: Supple. CHEST: Clear to auscultation. No respiratory distress. chest wall tender to palpation and bilateral
[2024-05-11 16:52] LABS: Basophils Absolute Auto 0.1 K/mm3 (0.0-0.1); Eosinophils Absolute Auto 0.1 K/mm3 (0-0.3); Hematocrit 47.6 % (42.0-52.0); Immature Granulocyte Absolute 0.02 K/mm3 (0.00-0.031); Immature Granulocyte Percent A 0.3 % (0-0.5); Lymphocytes Percent Auto 35.2 % (18.3-44.2); Mean Corpuscular HGB Conc 33.6 g/dl (32-36); Mean Corpuscular Hemoglobin 30.5 pg (26-34); Mean Corpuscular Volume 90.8 fl (80-100); Mean Platelet Volume 9.8 fl (7.4-10.4); Monocytes Absolute Auto 0.4 K/mm3 (0.1-0.6); Monocytes Percent Auto 5.9 % (2.6-8.5); Neutrophils Percent Auto 55.6 % (45.5-73.1); Platelet Count Result 166 k/mm3 (150-375); Red Blood Count 5.24 M/mm3 (4.6-6.20); Red Cell Distribution Width 12.8 % (11.5-14.5); White Blood Count 7.1 K/mm3 (4.5-10.0)
[2024-05-11 17:01] LABS: Alanine Aminotransferase 73 U/L (6-50); Albumin Level 4.9 g/dL (3.5-5.1); Alkaline Phosphatase 60 U/L (38-126); Anion Gap 11 mmol/L (4-12); Aspartate Amino Transferase 61 U/L (17-59); Bilirubin,Total 1.1 mg/dL (0.2-1.3); Blood Urea Nitrogen 10 mg/dL (9-20); Calcium 9.7 mg/dL (8.4-10.2); Carbon Dioxide 27 mmol/L (22-30); Chloride 99 mmol/L (98-107); Estimated CRCL calculation 118 ml/min; Estimated Glomerular Filt Rate > 60; Glucose 145 mg/dL (65-110); Lipase 70 U/L (23-300); Potassium 4.4 mmol/L (3.4-5.0); Sodium 137 mmol/L (137-145)
[2024-05-11 17:04] LABS: Partial Thromboplastin Time 29.5 Seconds (22.3-36.8); Prothrombin Time 13.9 Seconds (11.1-14.7)
[2024-05-11 17:12] LABS: D Dimer < 0.27 ug/mL (<0.48)
[2024-05-11 17:13] LABS: Troponin I < 0.012 ng/mL (0.000-0.034)
--- NOTE | 2024-05-11 22:23 | ECG_ITS ---
Test Date: 2024-05-11 22:34:12 Measurements Intervals [place] Rate: 69 P: 26 FL: 164 QRS: -28 QRSD: 110 T: 33 QT: 393 QTc: 422 Interpretive Statements SINUS RHYTHM LEFT ANTERIOR SUPERIOR HEMIBLOCK LOW QRS VOLTAGE IN PRECORDIAL LEADS [QRS DEFLECTION < 1.0 mV IN CHEST LEADS] ABNORMAL ECG Compared to ECG 05/11/2024 16:39:28 NO DIFFERENCE Electronically Signed On 05-12-2024 08:21:22 CDT by Sid Kaur M.D.
--- NOTE | 2024-05-11 22:39 | PC.NURSE ---
Patient states the pain is like there is something in my throat, it almost feels like a fish hook that keeps tugging. Patient states the pain is constant, no relief with otc meds at home.
[2024-05-11 22:52] LABS: Troponin I < 0.012 ng/mL (0.000-0.034)
[2024-05-11] MEDS: BELLADONNA ALK/PHENOB ELIX 10 ML, MAG HYDROX/ALUMINUM HYD/SIMETH 30 ML, LIDOCAINE HCL 2... PO (23:10)
[2024-05-11] MEDS: KETOROLAC 15 MG/ML VIAL (*BKC) IV PUSH (23:10)
[2024-05-12] VITALS: PULSE 61; RESP 13; O2SAT 94
[2024-05-12] MEDS: NITROGLYCERIN SL 0.4 MG TABLET SUBLINGUAL (00:10)
[2024-05-12] MEDS: MORPHINE SULFATE (*CRX) 4 MG/ML INJ IV PUSH (00:10)
[2024-05-12 00:11] VITALS: BP 131/82; PULSE 69; RESP 12; O2SAT 99
[2024-05-12 00:15] VITALS: PULSE 88; RESP 14; O2SAT 94
[2024-05-12 00:30] VITALS: PULSE 75; RESP 12; O2SAT 96
[2024-05-12 00:31] VITALS: BP 119/82; PULSE 75; RESP 12; O2SAT 95
[2024-05-12 01:30] VITALS: BP 135/87; PULSE 69; RESP 16; O2SAT 96
== END 2024-05-12 01:31 | disposition home or self-care (01) ==
PROVIDERS: Emergency Medicine; Emergency Provider Emergency Medicine; PCP Emergency Medicine
DX: R07.89 Other chest pain (principal); I10 Essential (primary) hypertension; K21.9 Gastro-esophageal reflux disease without esophagitis; F17.210 Nicotine dependence, cigarettes, uncomplicated; Z86.010 Personal history of colon polyps; Z79.899 Other long term (current) drug therapy; I44.4 Left anterior fascicular block
CPT/HCPCS: 36415; 71046; 80053; 83690; 84484; 85025; 85380; 85610; 85730; 93005; 96374; 99284; A9270; J1885; J2270